=== PATIENT | female | born 1955 | race Caucasian/White ===

== ENCOUNTER 2016-09-29 10:06 | Observation (INO) | payer MEDICARE, SELFPAY ==
[~2016-09-29] VITALS: Ht 162.6 cm; Wt 90.0 kg
[2016-09-29 10:34] LABS: URINE BILIRUBIN NEGATIVE (NEGATIVE); URINE BLOOD NEGATIVE (NEGATIVE); URINE KETONE 3+ (NEGATIVE); URINE LEUKOCYTE ESTERASE TRACE (NEGATIVE); URINE NITRATE NEGATIVE (NEGATIVE); URINE PROTEIN TRACE (NEGATIVE); UROBILINOGEN NORMAL mg/dL (<1.0)
[2016-09-29 10:45] LABS: BASO % 0.2 % (0.1-1.2); EOS # 0.1 10_X3_uL (0.0-0.4); EOS % 0.3 % (0.7-5.8); GRAN # 14.3 10_X3_uL (1.6-6.1); GRAN % 82.2 % (34.0-71.1); HEMATOCRIT 46.1 % (34-45); HEMOGLOBIN 15.3 g/dL (11.2-15.7); LYMPH % 11.3 % (19.3-51.7); MEAN CORPUSCULAR HEMOGLOBIN 30.5 pg (27.0-33.0); MEAN CORPUSCULAR HGB CONC 33.2 g/dL (32.0-36.0); MEAN CORPUSCULAR VOLUME 91.8 fL (79-95); MEAN PLATELET VOLUME 10.3 fl (7.5-11.5); MONO # 1.1 10_X3_uL (0.2-0.9); PLATELET COUNT 206 x10_3/uL (182-369); RED BLOOD COUNT 5.02 x10_6/uL (3.9-5.2); RED CELL DISTRIBUTION WIDTH 14.5 % (11.7-14.4); WHITE BLOOD COUNT 17.4 x10_3/uL (4.0-10.0)
[2016-09-29 10:46] LABS: URINE GLUCOSE (UA) 1000 mg/dL (NORMAL)
[2016-09-29 10:57] LABS: ALBUMIN 4.1 gm/dL (3.4-5.0); ALKALINE PHOSPHATASE 106 U/L (50-136); ALT/SGPT 17 U/L (3.5-33.9); AMYLASE 20 U/L (15.62-74.58); AST/SGOT 17 U/L (7.04-26.96); BILIRUBIN,TOTAL 0.41 mg/dL (0.0-1.0); BLOOD UREA NITROGEN 10 mg/dL (7-18); CALCIUM 9.2 mg/dL (8.7-10.7); CARBON DIOXIDE 25 mmol/L (21-32); CREATININE 0.5 mg/dL (0.6-1.3); GLUCOSE,RANDOM 374 mg/dL (70-99); LIPASE 16 U/L (6.75-60.75); POTASSIUM 3.8 mmol/L (3.5-5.1); SODIUM 138 mmol/L (136-145); TOTAL PROTEIN 7.2 gm/dL (6.4-8.2)
[2016-09-29 10:59] LABS: URINE BACTERIA TRACE (NONE SEEN); URINE RBC 0-5 /[HPF] (0-2); URINE SQUAMOUS EPITHELIAL CELL 0-10 /[HPF] (NONE SEEN); URINE WBC 0-5 /[HPF] (0-5)
[2016-09-30 07:32] LABS: BASO % 0.1 % (0.1-1.2); EOS # 0.1 10_X3_uL (0.0-0.4); EOS % 0.6 % (0.7-5.8); GRAN # 10.2 10_X3_uL (1.6-6.1); HEMATOCRIT 40.7 % (34-45); HEMOGLOBIN 13.1 g/dL (11.2-15.7); LYMPH # 2.8 10_X3_uL (1.2-3.7); LYMPH % 19.3 % (19.3-51.7); MEAN CORPUSCULAR HEMOGLOBIN 29.8 pg (27.0-33.0); MEAN CORPUSCULAR HGB CONC 32.2 g/dL (32.0-36.0); MEAN CORPUSCULAR VOLUME 92.7 fL (79-95); MEAN PLATELET VOLUME 10.3 fl (7.5-11.5); MONO # 1.3 10_X3_uL (0.2-0.9); PLATELET COUNT 180 x10_3/uL (182-369); RED BLOOD COUNT 4.39 x10_6/uL (3.9-5.2); RED CELL DISTRIBUTION WIDTH 14.5 % (11.7-14.4); WHITE BLOOD COUNT 14.3 x10_3/uL (4.0-10.0)
[2016-09-30 07:43] LABS: BLOOD UREA NITROGEN 14 mg/dL (7-18); CALCIUM 8.5 mg/dL (8.7-10.7); CARBON DIOXIDE 25 mmol/L (21-32); CREATININE < 0.5 mg/dL (0.6-1.3); GLUCOSE,RANDOM 175 mg/dL (70-99); POTASSIUM 3.8 mmol/L (3.5-5.1); SODIUM 140 mmol/L (136-145)
== END 2016-09-30 16:35 | disposition home or self-care (01) ==
LOC: ER 10:06 → MS 13:01
PROVIDERS: Emergency Medicine; ADMIT Family Medicine
DX: K56.60 Unspecified intestinal obstruction (principal); K52.9 Noninfective gastroenteritis and colitis, unspecified; R10.9 Unspecified abdominal pain; R11.2 Nausea with vomiting, unspecified; K80.80 Other cholelithiasis without obstruction; E11.9 Type 2 diabetes mellitus without complications; I10 Essential (primary) hypertension; J44.9 Chronic obstructive pulmonary disease, unspecified; R63.4 Abnormal weight loss; F41.9 Anxiety disorder, unspecified; F32.9 Major depressive disorder, single episode, unspecified; N83.202 Unspecified ovarian cyst, left side; S32.302 Unspecified fracture of left ilium; S22.49XS Multiple fractures of ribs, unspecified side, sequela; S22.20XS Unspecified fracture of sternum, sequela; S92.909 Unspecified fracture of unspecified foot; V89.2XXS Person injured in unspecified motor-vehicle accident, traffic, sequela; F17.210 Nicotine dependence, cigarettes, uncomplicated; Z68.34 Body mass index [BMI] 34.0-34.9, adult; Z88.5 Allergy status to narcotic agent; Z82.49 Family history of ischemic heart disease and other diseases of the circulatory system; Z79.891 Long term (current) use of opiate analgesic; Z79.899 Other long term (current) drug therapy
CPT/HCPCS: 36415; 74150; 80048; 80053; 80061; 81001; 82150; 82962; 83036; 83690; 85025; 96361; 96372; 96374; 96375; 99070; 99285-25; G0378